=== PATIENT | male | born 1960 | race Caucasian/White ===

== ENCOUNTER 2020-01-11 07:21 | Emergency (ER) | payer MEDICARE ==
[~2020-01-11] VITALS: Ht 170.2 cm; Wt 55.4 kg
--- NOTE | 2020-01-11 07:37 | PHYS DOC ---
Past History Past Medical History: Other (ED) Adult General Chief Complaint Chief Complaint: PROLONGED ERECTION HPI HPI Patient is a 59-year-old male who presents with priapism. Patient has history of ED, is currently followed in outpatient setting by Urologist at [facility] and takes Trimix (prostaglandin/phentolamine/papaverine) injections for this. This is his fourth time injecting said medication. Patient reports injecting this medication yesterday evening around 10 PM. He presents today with erection lasting approximately 8 hours. Patient has history of this in the past with x1 ED visit requiring cavernosal blood drainage. He is also self medicated in the past with Sudafed with relief. Nonetheless, patient reports walking around, applying ice, and taking Sudafed overnight without significant relief prompting him to seek care at our ER for evaluation Review of Systems Review of Systems Fourteen body systems of review of systems have been reviewed. See HPI for pertinent positives and negative responses, other davison all other systems are negative, non-pertinent or non-contributory Physical Exam Physical Exam Constitutional: Well developed, well nourished, no acute distress, non-toxic appearance. HENT: Normocephalic, atraumatic, bilateral external ears normal, oropharynx moist, no oral exudates, nose normal. Eyes: PERRLA, EOMI, conjunctiva normal, no discharge. Neck: Normal range of motion, no tenderness, supple, no stridor. Cardiovascular: Heart rate regular, sinus rhythm, no murmurs rubs or gallops Lungs & Thorax: Bilateral breath sounds clear to auscultation Abdomen: Bowel sounds normal, soft, no tenderness, no masses, no pulsatile masses. Nonsurgical abdomen, no peritoneal signs : Testicles descended bilaterally without pain or palpable abnormalities, penis fully erect consistent with history of priapism Skin: Warm, dry, no erythema, no rash. Back: No tenderness, no CVA tenderness. Extremities: No tenderness, no cyanosis, no clubbing, ROM intact, no edema. Neurologic: Alert and oriented X 3, grossly normal motor & sensory function, no focal deficits noted. Psychologic: Affect normal, judgement normal, anxious mood Current Patient Data Vital Signs Vital Signs Date Time Temp Pulse Resp B/P (MAP) Pulse Ox O2 Delivery O2 Flow Rate FiO2 01/11/20 08:30 98.0 50 16 117/74 (88) 97 Room Air Lab Results Laboratory Tests Test 01/11/20 07:40 White Blood Count 8.2 x10^3/uL (4.0-11.0) Red Blood Count 4.00 x10^6/uL (4.30-5.70) Hemoglobin 12.6 g/dL (13.0-17.5) Hematocrit 36.6 % (39.0-53.0) Mean Corpuscular Volume 91 fL (79-100) Mean Corpuscular Hemoglobin 32 pg (25-35) Mean Corpuscular Hemoglobin Concent 35 g/dL (31-37) Red Cell Distribution Width 13.4 % (11.5-14.5) Platelet Count 227 x10^3/uL (140-400) Neutrophils (%) (Auto) 64 % (31-73) Lymphocytes (%) (Auto) 28 % (24-48) Monocytes (%) (Auto) 4 % (0-9) Eosinophils (%) (Auto) 2 % (0-3) Basophils (%) (Auto) 1 % (0-3) Neutrophils # (Auto) 5.3 x10^3uL (1.8-7.7) Lymphocytes # (Auto) 2.3 x10^3/uL (1.0-4.8) Monocytes # (Auto) 0.3 x10^3/uL (0.0-1.1) Eosinophils # (Auto) 0.2 x10^3/uL (0.0-0.7) Basophils # (Auto) 0.1 x10^3/uL (0.0-0.2) EKG EKG [] Radiology/Procedures Radiology/Procedures [] Course & Med Decision Making Course & Med Decision Making Ambulatory patient seen on immediate arrival ABCs grossly non-concerning Comprehensive history and physical exam and subsequent diagnostic work-up ordere d On-call urologist at [facility], Dr Davin Trujillo, contacted and case discussed given prolonged priapism ~8hr duration that was medically induced. He recommended penile block, phenylephrine injection and if needed cavernosum aspiration I discussed this phone call with patient and proposed treatment options with patient, risks and benefits of subsequent treatment options reviewed. I s pecifically discussed risk of urethral injury, nerve damage, deformity. Verbal consent obtained from patient Joint decision to pursue penile block with 2.5 cc 2% lidocaine injected into 2:00 and 10:00 positions of base of penis after being wiped down with alcohol prep pad which patient tolerated well, subsequent phenylephrine injection (300mcg total injected into right corpus cavernosum), and subsequent bilateral corpus cavernosum aspiration 25cc blood from each cavernosum performed Patient's priapism responded mildly to intervention above but still present Discussed need for higher level of care; specifically, urology consultation. Patient disclosed he sees Bolivar Hurley APRN who is a partner at urology care. I subsequently reached out to [facility] for which their urology group staffs and case was discussed with the tape transferrer and ER physician. All in agreement for transfer to their ER for urology consultation. Patient will be seen by Dr Garcia of Urology [facility], [place]. I discussed this conversation and decision with patient. He was agreeable to transfer via ambulance for higher acuity of care for his priapism that has been unresponsive to our ER intervention thus far Dragon Disclaimer Dragon Disclaimer This electronic medical record was generated, in whole or in part, using a voice recognition dictation system. Departure Departure: Impression: Primary Impression: Priapism, drug-induced Disposition: 05 TRANSFER OTHER ([facility]) Admitting Physician: Other (Patient being sent to ER for evaluation by urology care, Dr. Garcia) Condition: STABLE Referrals: CHICHO GAGE MD (PCP) Justification of Admission: Justification of Admission: Justification of Admission Dx: Yes (Priapism unresponsive to ED management) JULEE ARMSTRONG DO Jan 11, 2020 07:37
[2020-01-11] MEDS ORDERED: IV NORMAL SALINE 1,000ML 1,000 ML IV ONE (07:45)
[2020-01-11] MEDS ORDERED: MORPHINE SULFATE 4 MG/ML DISP.SYRIN. IV ONE ×2 (07:45→09:00)
[2020-01-11 07:55] LABS: BASO # 0.1 x10^3/uL (0.0-0.2); BASO % 1 % (0-3); EOS # 0.2 x10^3/uL (0.0-0.7); EOS % 2 % (0-3); HEMATOCRIT 36.6 % (39.0-53.0); HEMOGLOBIN 12.6 g/dL (13.0-17.5); LYMPH # 2.3 x10^3/uL (1.0-4.8); LYMPH % 28 % (24-48); MEAN CORPUSCULAR HEMOGLOBIN 32 pg (25-35); MEAN CORPUSCULAR HGB CONC 35 g/dL (31-37); MEAN CORPUSCULAR VOLUME 91 fL (79-100); MONO # 0.3 x10^3/uL (0.0-1.1); MONO % 4 % (0-9); NEUT # 5.3 x10^3uL (1.8-7.7); NEUT % 64 % (31-73); PLATELET COUNT 227 x10^3/uL (140-400); RED CELL DISTRIBUTION WIDTH 13.4 % (11.5-14.5); WHITE BLOOD COUNT 8.2 x10^3/uL (4.0-11.0)
[2020-01-11] MEDS ORDERED: hydrOXYzine HCL 25 MG TABLET PO ONE (10:30)
[2020-01-11 11:00] VITALS: BP 123/69
== END 2020-01-11 11:12 | disposition home or self-care (01) ==
LOC: ER 07:21
DX: N48.33 Priapism, drug-induced (principal); T45.525A Adverse effect of antithrombotic drugs, initial encounter; Y92.89 Other specified places as the place of occurrence of the external cause
CPT/HCPCS: 36415; 54235; 85025; 96361; 96374; 96375; 99284; J2270; J7030

== ENCOUNTER 2020-05-16 22:36 | Emergency (ER) | payer MEDICARE ==
[~2020-05-16] VITALS: Ht 170.2 cm; Wt 55.4 kg
--- NOTE | 2020-05-16 22:41 | PHYS DOC ---
Past History Past Medical History: Other Additional Past Medical Histor: erectile dysfunction Past Surgical History: No Surgical History Alcohol Use: None General Adult HPI: HPI: ".. I having a priaprism episode.. I inject myself about 2 and 1/2 ago.. and the erection has never gone away...". " The last time this happen was in Dec. last year.. the only thing that help is irrigation... " Patient is a 59 year old male who presents with above hx and complaints Priaprism. Pt. had inject his penis approximately two and 1/2 hours ago. Pt. was using a Prostagandin 20mic/ml + Phenotolamine 1 mg/ml and Papaverine 30 mg/ml mix or 20:1:30 mix. Pt. inject 0.4 of the concentration. Discussed presentation, testing and tx. with Dr. Caputo phone specialist for Urology at [facility]. Pt. normally follows with Dr. Hurley. Dr. Caputo recommend to attempt the phenylephine injections If no response to transfer or have pt. present to [facility] ED for a more invasive irrigation of cavernosa. Patient has had erectile dysfunction since age 20. Has used Sudafed in the past with some relief of problems with priaprism. . Ice packs did not help. No history of she DVTs. No history of dysuria. Last prolonged erection that required ED visit was on 01/11/2020. Patient follows with Dr Gage as primary. No history of STDs. No recent travel. No sick ill contacts. No history of dysuria. Patient uses the erectile injection monthly. Review of Systems: Review of Systems: Constitutional: Denies fever or chills Eyes: Denies change in visual acuity HENT: Denies nasal congestion or sore throat Respiratory: Denies cough or shortness of breath Cardiovascular: Denies chest pain or edema GI: Denies abdominal pain, nausea, vomiting, bloody stools or diarrhea : Denies dysuria. Complains severe penile pain from priaprism Musculoskeletal: Denies back pain or joint pain Integument: Denies rash Neurologic: Denies headache, focal weakness or sensory changes Endocrine: Denies polyuria or polydipsia Lymphatic: Denies swollen glands Psychiatric: Denies depression or anxiety Family History: Family History: Noncontributory to presentation Current Medications: Current Meds: See nursing for home meds Allergies: Allergies: Allergies Coded Allergies Type Severity Reaction Last Updated Verified No Known Drug Allergies 01/11/20 No Physical Exam: PE: Constitutional: in acute distress, non-toxic appearance. [] HENT: Normocephalic, atraumatic, bilateral external ears normal, oropharynx moist, no oral exudates, nose normal. [] Eyes: PERRLA, EOMI, conjunctiva normal, no discharge. [] Neck: Normal range of motion, no tenderness, supple, no stridor. [] Cardiovascular:Heart rate regular rhythm, no murmur [] Lungs & Thorax: Bilateral breath sounds equal at apex on auscultation [] Abdomen: Bowel sounds normal, soft, no tenderness, no masses, no pulsatile masses. [] Marked priaprism. Circumcised male. Testicles nontender. Skin: Warm, dry, no erythema, no rash. [] Back: No tenderness, no CVA tenderness. [] Extremities: No tenderness, no cyanosis, no clubbing, ROM intact, no edema. [] Neurologic: Alert and oriented X 3, normal motor function, normal sensory function, no focal deficits noted. [] Psychologic: Affect anxious, judgement normal, mood normal. [] EKG: EKG: [] Radiology/Procedures: Radiology/Procedures: [] Heart Score: Risk Factors: Risk Factors: DM, Current or recent (<one month) smoker, HTN, HLP, family history of CAD, obesity. Risk Scores: Score 0 - 3: 2.5% MACE over next 6 weeks - Discharge Home Score 4 - 6: 20.3% MACE over next 6 weeks - Admit for Clinical Observation Score 7 - 10: 72.7% MACE over next 6 weeks - Early Invasive Strategies Course & Med Decision Making: Course & Med Decision Making Pertinent Labs and Imaging studies reviewed. (See chart for details) Procedure note: -Injection of phenylephrine- discussed risk and benefits of treatment with patient. Prepped skin with alcohol. Patient received a penile block of 2 cc of 2% lidocaine at 2 and 10:00. Then formed a phenylephine dilution of 10 mls of normal saline with 0.5 ml of phenylephrine.(10 mg/ml ) Reviewed dosages and concentration with pharmacy. Pt. recieved 100 alison per cavernosum every 10 min. - 15min x 3. Patient eventually had resolution of his priaprism. Patient was monitored for additional 30 minutes for sequela of injections. No obvious ill effects. Patient discharged home. Patient to follow-up with primary and urology. Recommended avoiding further use of his erectile medicines until review with primary and urology. Pt.advised if further problems present to [facility] ED on [place] for surgical irrigation- Dr Caputo phone specialist advised she would alert the ED of his possible arrival if the phenylephine injections did not work. Impression: 1. Priaprism - from use of erectile drug [] Dragon Disclaimer: Dragon Disclaimer: This electronic medical record was generated, in whole or in part, using a voice recognition dictation system. Departure Departure: Referrals: CHICHO GAGE MD (PCP) Dona Disclaimer This chart was dictated in whole or in part using Voice Recognition software in a busy, high-work load, and often noisy Emergency Department environment. It may contain unintended and wholly unrecognized errors or omissions. Dragon Disclaimer This chart was dictated in whole or in part using Voice Recognition software in a busy, high-work load, and often noisy Emergency Department environment. It may contain unintended and wholly unrecognized errors or omissions. HUI WOLF MD May 16, 2020 22:41
[2020-05-16] MEDS ORDERED: LIDOCAINE 2% 20 ML VIAL. IJ ONE (23:00)
[2020-05-16] MEDS ORDERED: PHENYLEPHRINE INJ 50 MG in IV NORMAL SALINE 250ML 250 ML IV PRN (23:00)
[2020-05-16] MEDS ORDERED: IV NORMAL SALINE 50ML 50 ML ONE (23:11)
[2020-05-16] MEDS ORDERED: PHENYLEPHRINE 10 MG/ML VIAL. IV ONE (23:12)
[2020-05-16] MEDS ORDERED: NORMAL SALINE IV ONE (23:30)
[2020-05-16] MEDS ORDERED: PHENYLEPHRINE IV ONE (23:30)
[2020-05-17 00:45] VITALS: BP 125/92
== END 2020-05-17 00:45 | disposition home or self-care (01) ==
LOC: ER 22:36
DX: N48.33 Priapism, drug-induced (principal); T45.525A Adverse effect of antithrombotic drugs, initial encounter; T44.3X5A Adverse effect of other parasympatholytics [anticholinergics and antimuscarinics] and spasmolytics, initial encounter; Y92.89 Other specified places as the place of occurrence of the external cause
CPT/HCPCS: 54220; 99284; J2001

== ENCOUNTER 2020-08-01 03:18 | Emergency (ER) | payer MEDICARE ==
[~2020-08-01] VITALS: Ht 170.2 cm; Wt 58.1 kg
--- NOTE | 2020-08-01 03:22 | PHYS DOC ---
Past History Past Medical History: Depression, Other Additional Past Medical Histor: erectile dysfunction Past Surgical History: Tonsillectomy Alcohol Use: None General Adult HPI: HPI: ".. I am here for the same problem.. I had last time.. I injected a more dilute concentration.. and used only 0.2ml of it and not the full ..0.5 ml.. they gave me a new mix...".." the urologist said it should be no problem...' Patient is a 59 year old male who presents with above hx and complaints of pria pism. Pt. last injected the 2300 hrs.a new prostaglandin concentration prepared by his urologist at [facility]. Patient follows with Dr. Hurley. Patient has had prolonged erection and now developing significant discomfort and pain. Patient did not bring the new erection mixed with him so concentrations are unknown. Patient has long history of erectile dysfunction since age 20. Patient has used Sudafed in the past with some relief of symptoms. Patient did use ice packs and night which did not help. Patient denies any history of previous DVTs. No history of dysuria. No history of penile discharge. No concerns for STD. This is his third visit to the ED since 01/11/2020 for priapism. Patient only follows with Dr. Schmidt as primary. No recent travel. No sick contacts. No history of dysuria. Uses the erectile injection monthly. This is the first use of the new erectile injection concentration. Review of Systems: Review of Systems: Constitutional: Denies fever or chills Eyes: Denies change in visual acuity HENT: Denies nasal congestion or sore throat Respiratory: Denies cough or shortness of breath Cardiovascular: Denies chest pain or edema GI: Denies abdominal pain, nausea, vomiting, bloody stools or diarrhea : Complains of priapism Musculoskeletal: Denies back pain or joint pain Integument: Denies rash Neurologic: Denies headache, focal weakness or sensory changes Endocrine: Denies polyuria or polydipsia Lymphatic: Denies swollen glands Psychiatric: Denies depression or anxiety Family History: Family History: Noncontributory to presentation Current Medications: Current Meds: See nursing for home medications Allergies: Allergies: Allergies Coded Allergies Type Severity Reaction Last Updated Verified No Known Drug Allergies 01/11/20 No Physical Exam: PE: Constitutional: Well developed, well nourished, in acute distress, non-toxic appearance. [] HENT: Normocephalic, atraumatic, bilateral external ears normal, oropharynx moist, no oral exudates, nose normal. [] Eyes: PERRLA, EOMI, conjunctiva normal, no discharge. [] Neck: Normal range of motion, no tenderness, supple, no stridor. [] Cardiovascular:Heart rate regular rhythm, no murmur [] Lungs & Thorax: Bilateral breath sounds clear to auscultation [] Abdomen: Bowel sounds normal, soft, no tenderness, no masses, no pulsatile masses. Priaprism, testicles distended. No discharge. No adenopathy. Skin: Warm, dry, no erythema, no rash. [] Back: No tenderness, no CVA tenderness. [] Extremities: No tenderness, no cyanosis, no clubbing, ROM intact, no edema. [] Neurologic: Alert and oriented X 3, normal motor function, normal sensory function, no focal deficits noted. [] Psychologic: Affect anxious, judgement normal, mood normal. [] EKG: EKG: [] Radiology/Procedures: Radiology/Procedures: [] Heart Score: C/O Chest Pain: N/A Risk Factors: Risk Factors: DM, Current or recent (<one month) smoker, HTN, HLP, family history of CAD, obesity. Risk Scores: Score 0 - 3: 2.5% MACE over next 6 weeks - Discharge Home Score 4 - 6: 20.3% MACE over next 6 weeks - Admit for Clinical Observation Score 7 - 10: 72.7% MACE over next 6 weeks - Early Invasive Strategies Course & Med Decision Making: Course & Med Decision Making Pertinent Labs and Imaging studies reviewed. (See chart for details) Procedure note - Discussed risks and complications of injection phenylephrine. Prepped the skin on dorsal area at base of penis with alcohol. Patient received a penile block of 2 cc of 2% lidocaine at 2 and 10:00. I formed a phenylephrine dilution of 10 mils of normal saline with 0.5 mL of phenyl ephrine. Reviewed dosages and concentration with pharmacy . Pt received 50 alison per cavernosum x 1. Pt. eventually had resolution of his priaprism. ( Previously pt. required 100 alison per cavernosum every 15 min x 3). Patient had no obvious ill effects from the injection. Patient discharged home. Patient follow-up with primary and urology. Recommend no further use of erectile medicines until review with primary and urology. Patient advised if any further problems present to [facility] emergency department [place] for surgical irrigation by his urologist. Would call lst to make sure urology environmental services supervisor was available to follow at time of his presentation. Impression: 1. History of erectile dysfunction 2. Priapism - from use of erectile drug injection. [] Dragon Disclaimer: Dona Disclaimer: This electronic medical record was generated, in whole or in part, using a voice recognition dictation system. Departure Departure: Referrals: CHICHO SCHMIDT MD (PCP) Dona Disclaimer This chart was dictated in whole or in part using Voice Recognition software in a busy, high-work load, and often noisy Emergency Department environment. It may contain unintended and wholly unrecognized errors or omissions. HUI WOLF MD Aug 01, 2020 03:22
[2020-08-01] MEDS ORDERED: LIDOCAINE 2% 20 ML VIAL. IJ ONE (03:30)
[2020-08-01 03:32] VITALS: BP 126/98
[2020-08-01] MEDS ORDERED: NORMAL SALINE IV PRN (03:45)
[2020-08-01] MEDS ORDERED: PHENYLEPHRINE IV PRN (03:45)
[2020-08-01] MEDS ORDERED: IV NORMAL SALINE 100ML 100 ML ONE (03:48)
[2020-08-01] MEDS ORDERED: PHENYLEPHRINE 10 MG/ML VIAL. IV ONE (03:48)
[2020-08-01] MEDS ORDERED: PHENYLEPHRINE MC ONE (04:00)
[2020-08-01] MEDS ORDERED: PHENYLEPHRINE IV ONE (04:00)
[2020-08-01] MEDS ORDERED: NORMAL SALINE IV ONE (04:00)
[2020-08-01] MEDS ORDERED: NORMAL SALINE MC ONE (04:00)
== END 2020-08-01 04:58 | disposition home or self-care (01) ==
LOC: ER 03:18
DX: N48.33 Priapism, drug-induced (principal); F32.9 Major depressive disorder, single episode, unspecified
CPT/HCPCS: 54220; 99284; J2001